=== PATIENT | female | born 1960 | race Caucasian/White ===

== ENCOUNTER 2017-09-24 06:01 | Inpatient (IN) | payer OTHER ==
[~2017-09-24] VITALS: Ht 157.5 cm; Wt 98.6 kg
[~2017-09-24 06:01] MED LIST: ASPIR 8181 MG PO; CLONIDINE HCL0.1 MG PO; CLONIDINE HCL0.2 MG PO; COLACE100 MG PO; D3-50001 TAB PO; GABAPENTIN300 M2 PO; GLUCOVANCE1 TA2 PO; HYDROCHLOROTHIA25 MG PO; LANTUS SOLOS100 U/M1 SQ; LIPITOR40 MG PO; MAPAP500 MG PO; METFORMIN HCL850 MG PO; NAPROXEN EC500 MG PO; NEU100 PO; NEURONTIN100 MG PO; NOR5 PO; TENORMIN25 MG PO; VASOTEC20 MG PO; VITAMIN D35000 IU PO
[2017-09-24 07:01] LABS: BASOPHIL % 0.4 % (0-2); PLATELET COUNT 385 x10^3mcL (130-400); RED CELL DISTRIBUTION WIDTH 13.8 % (11.5-14.5)
[2017-09-24 07:15] LABS: ALBUMIN 3.4 g/dL (3.4-5.0); BILIRUBIN TOTAL 0.4 mg/dL (0.20-1.00); CALCIUM 9.7 mg/dL (8.5-10.1); CARBON DIOXIDE 26.6 mmol/L (21-32); CREATININE SERUM 1.3 mg/dL (0.6-1.0); POTASSIUM SERUM 4.5 mmol/L (3.5-5.1); TOTAL PROTEIN, SERUM 8.2 g/dL (6.4-8.2)
[2017-09-24 08:52] LABS: UA SPECIFIC GRAVITY 1.015 (1.005-1.035); microscopic required? YES; urine erythrocyte TRACE (NEGATIVE)
[2017-09-24 10:39] VITALS: BP 202/87
[2017-09-24 11:36] VITALS: BP 202/87
[2017-09-24 14:33] VITALS: BP 139/74
[2017-09-24 16:57] VITALS: BP 176/79
[2017-09-24 17:47] VITALS: BP 156/74
[2017-09-24 21:40] VITALS: BP 156/51
[2017-09-25] VITALS (7 sets, daily range): BP systolic 125–183; BP diastolic 56–76
[2017-09-25 06:48] LABS: CALCIUM 9.2 mg/dL (8.5-10.1); CARBON DIOXIDE 29.6 mmol/L (21-32); CHLORIDE SERUM 103 mmol/L (98-107); CREATININE SERUM 0.9 mg/dL (0.6-1.0); GFR1 > 60 mL/min; GLUCOSE SERUM 210 mg/dL (74-106); MAGNESIUM 1.6 mg/dL (1.8-2.4); POTASSIUM SERUM 4.3 mmol/L (3.5-5.1); SODIUM SERUM 138 mmol/L (136-145)
[2017-09-25 06:56] LABS: BASOPHIL % 0.6 % (0-2); PLATELET COUNT 348 x10^3mcL (130-400); RED CELL DISTRIBUTION WIDTH 14.1 % (11.5-14.5)
[2017-09-26 05:51] VITALS: BP 158/50
[2017-09-26 06:26] LABS: CALCIUM 9.4 mg/dL (8.5-10.1); CARBON DIOXIDE 30.5 mmol/L (21-32); CREATININE SERUM 1.1 mg/dL (0.6-1.0); MAGNESIUM 1.8 mg/dL (1.8-2.4); POTASSIUM SERUM 4.8 mmol/L (3.5-5.1)
[2017-09-26 06:39] LABS: BASOPHIL % 0.5 % (0-2); PLATELET COUNT 342 x10^3mcL (130-400); RED CELL DISTRIBUTION WIDTH 13.7 % (11.5-14.5)
[2017-09-26 10:36] VITALS: BP 156/49
[2017-09-26 13:51] VITALS: BP 136/53
[2017-09-26] MEDS ORDERED: APR25 PO (18:08)
[2017-09-26 18:09] VITALS: BP 123/78
[2017-09-26] MEDS ORDERED: LOP50 PO (18:09)
[2017-09-26] MEDS ORDERED: NOR5 PO (18:10)
[2017-09-26 18:26] VITALS: BP 123/78
== END 2017-09-26 18:59 | disposition home or self-care (01) | DRG 203 ==
LOC: ED 06:01 → DU 09:10
PROVIDERS: Emergency Medicine; ADMIT Internal Medicine Pulmonary Disease
DX: R07.89 Other chest pain (principal); N17.9 Acute kidney failure, unspecified; E88.81 Metabolic syndrome and other insulin resistance; E11.65 Type 2 diabetes mellitus with hyperglycemia; I16.0 Hypertensive urgency; E66.9 Obesity, unspecified; E78.5 Hyperlipidemia, unspecified; Z79.84 Long term (current) use of oral hypoglycemic drugs; Z86.73 Personal history of transient ischemic attack (TIA), and cerebral infarction without residual deficits; Z90.49 Acquired absence of other specified parts of digestive tract; I10 Essential (primary) hypertension
CPT/HCPCS: 82962; 83880; 87804; A9500; J1815; J2785; J7030; J7050; Q0092

== ENCOUNTER 2017-10-15 13:13 | Emergency (ER) | payer OTHER ==
[~2017-10-15 13:13] MED LIST changes: +APR25 PO; +LOP50 PO
[2017-10-15 14:44] LABS: RED CELL DISTRIBUTION WIDTH 13.5 % (11.5-14.5)
[2017-10-15 14:48] LABS: BASOPHIL % 0 % (0-2); PLATELET COUNT 415 x10^3mcL (130-400)
[2017-10-15 14:49] LABS: CALCIUM 8.9 mg/dL (8.5-10.1); CARBON DIOXIDE 25.1 mmol/L (21-32); CREATININE SERUM 1.2 mg/dL (0.6-1.0); POTASSIUM SERUM 4.8 mmol/L (3.5-5.1)
[2017-10-15 14:54] LABS: ALBUMIN 3.4 g/dL (3.4-5.0); BILIRUBIN TOTAL 0.5 mg/dL (0.20-1.00)
[2017-10-15 16:29] VITALS: BP 137/79
== END 2017-10-15 16:29 | disposition home or self-care (01) ==
LOC: ED 13:13
PROVIDERS: Emergency Medicine
DX: B34.9 Viral infection, unspecified (principal); I10 Essential (primary) hypertension; E78.5 Hyperlipidemia, unspecified; E11.9 Type 2 diabetes mellitus without complications
CPT/HCPCS: 83880; 84439; 87046; 87046-59; J1885; J2765; J7030; Q0092

== ENCOUNTER 2017-10-25 15:49 | Emergency (ER) | payer OTHER ==
[~2017-10-25] VITALS: Ht 157.5 cm; Wt 96.6 kg
[2017-10-25 16:55] VITALS: Ht 157.5 cm; Wt 96.6 kg
[2017-10-25 20:26] LABS: BASOPHIL % 0.4 % (0-2); RED CELL DISTRIBUTION WIDTH 14.3 % (11.5-14.5)
[2017-10-25 20:29] LABS: PLATELET COUNT 408 x10^3mcL (130-400)
[2017-10-25 20:39] LABS: CALCIUM 8.2 mg/dL (8.5-10.1); CARBON DIOXIDE 29.6 mmol/L (21-32); CREATININE SERUM 1.4 mg/dL (0.6-1.0); POTASSIUM SERUM 4.2 mmol/L (3.5-5.1)
[2017-10-25 20:44] LABS: ALBUMIN 2.9 g/dL (3.4-5.0); BILIRUBIN TOTAL 0.2 mg/dL (0.20-1.00); TOTAL PROTEIN, SERUM 7.2 g/dL (6.4-8.2)
[2017-10-25 23:20] VITALS: BP 170/89
== END 2017-10-25 23:31 | disposition home or self-care (01) ==
LOC: ED 15:49
PROVIDERS: Emergency Medicine
DX: J09.X2 Influenza due to identified novel influenza A virus with other respiratory manifestations (principal); I10 Essential (primary) hypertension; E11.9 Type 2 diabetes mellitus without complications; E78.5 Hyperlipidemia, unspecified; E78.00 Pure hypercholesterolemia, unspecified
CPT/HCPCS: 82962; 87804; J1885; J2405; J3490; J7030

== ENCOUNTER 2018-03-27 07:35 | Emergency (ER) | payer OTHER ==
[~2018-03-27] VITALS: Ht 170.2 cm; Wt 90.7 kg
[2018-03-27 07:47] VITALS: Ht 170.2 cm; Wt 90.7 kg
[2018-03-27 13:06] VITALS: BP 167/73
[2018-03-28] MEDS ORDERED: ACT15 PO (12:24)
[2018-03-28] MEDS ORDERED: VIT D2 PO (12:27)
[2018-03-28] MEDS ORDERED: TENORMIN50 MG GT (12:30)
[2018-03-28] MEDS ORDERED: METFORMIN HYD1000 M2 PO (12:30)
[2018-03-28] MEDS ORDERED: GLIPIZIDE10 M2 PO (12:31)
[2018-03-28] MEDS ORDERED: LASIX20 MG PO (12:31)
== END 2018-03-27 13:06 | disposition home or self-care (01) ==
LOC: ED 07:35
DX: N39.0 Urinary tract infection, site not specified (principal); I10 Essential (primary) hypertension; E11.9 Type 2 diabetes mellitus without complications; Z90.49 Acquired absence of other specified parts of digestive tract
CPT/HCPCS: 82962; J1885; J3010; Q0162

== ENCOUNTER 2018-03-28 07:05 | Emergency (ER) | payer OTHER ==
[~2018-03-28] VITALS: Ht 160 cm; Wt 100.4 kg
[2018-03-28 07:26] VITALS: Ht 160 cm; Wt 100.4 kg
[2018-03-28 08:27] LABS: BASOPHIL % 0.2 % (0-2); PLATELET COUNT 304 x10^3mcL (130-400)
[2018-03-28 08:28] LABS: RED CELL DISTRIBUTION WIDTH 15.2 % (11.5-14.5)
[2018-03-28 08:41] LABS: CALCIUM 9.1 mg/dL (8.5-10.1); CARBON DIOXIDE 24.1 mmol/L (21-32); CREATININE SERUM 1.3 mg/dL (0.6-1.0); POTASSIUM SERUM 4.4 mmol/L (3.5-5.1)
[2018-03-28 08:47] LABS: ALBUMIN 3.3 g/dL (3.4-5.0); BILIRUBIN TOTAL 0.51 mg/dL (0.20-1.00); TOTAL PROTEIN, SERUM 8.2 g/dL (6.4-8.2)
[2018-03-28 09:27] LABS: microscopic required? YES; urine erythrocyte TRACE (NEGATIVE)
[2018-03-28] MEDS ORDERED: ACT15 PO (12:24)
[2018-03-28] MEDS ORDERED: VIT D2 PO (12:27)
[2018-03-28] MEDS ORDERED: TENORMIN50 MG GT (12:30)
[2018-03-28] MEDS ORDERED: METFORMIN HYD1000 M2 PO (12:30)
[2018-03-28] MEDS ORDERED: GLIPIZIDE10 M2 PO (12:31)
[2018-03-28] MEDS ORDERED: LASIX20 MG PO (12:31)
[2018-03-28 16:43] VITALS: BP 150/70
== END 2018-03-28 16:43 | disposition short-term general hospital (02) ==
LOC: ED 07:05
PROVIDERS: Emergency Medicine
DX: A41.89 Other specified sepsis (principal); I10 Essential (primary) hypertension; E11.9 Type 2 diabetes mellitus without complications; E78.00 Pure hypercholesterolemia, unspecified; E78.5 Hyperlipidemia, unspecified; Z90.49 Acquired absence of other specified parts of digestive tract; Z86.73 Personal history of transient ischemic attack (TIA), and cerebral infarction without residual deficits
CPT/HCPCS: 62272; 83880; 86788; 86789; J0696; J2001; J2405; J3370; J3490; J7030

== ENCOUNTER 2018-04-03 17:58 | Inpatient (IN) | payer OTHER ==
[~2018-04-03] VITALS: Ht 157.5 cm; Wt 79.4 kg
[~2018-04-03 17:58] MED LIST changes: +ACT15 PO; +LASIX20 MG PO; +METFORMIN HYD1000 M2 PO; +TENORMIN50 MG GT; +VIT D2 PO
[2018-04-03 18:05] VITALS: Ht 157.5 cm; Wt 79.4 kg
[2018-04-03 18:35] LABS: BASOPHIL % 0.9 % (0-2)
[2018-04-03 18:36] LABS: RED CELL DISTRIBUTION WIDTH 15.9 % (11.5-14.5)
[2018-04-03 18:38] LABS: PLATELET COUNT 600 x10^3mcL (130-400)
[2018-04-03 18:45] LABS: CREATININE SERUM 1.2 mg/dL (0.6-1.0); POTASSIUM SERUM 4.4 mmol/L (3.5-5.1)
[2018-04-03] MEDS ORDERED: ATENOLOL50 MG PO (19:27)
[2018-04-03 20:26] VITALS: BP 186/81
[2018-04-03 20:57] VITALS: BP 186/81
[2018-04-03 23:51] VITALS: BP 176/64
[2018-04-04] VITALS (7 sets, daily range): BP systolic 150–180; BP diastolic 50–69
[2018-04-04 06:47] LABS: BASOPHIL % 0.5 % (0-2)
[2018-04-04 06:49] LABS: PLATELET COUNT 603 x10^3mcL (130-400); RED CELL DISTRIBUTION WIDTH 15.9 % (11.5-14.5)
[2018-04-04 07:37] LABS: CALCIUM 8.8 mg/dL (8.5-10.1); CARBON DIOXIDE 24.1 mmol/L (21-32); CREATININE SERUM 1.1 mg/dL (0.6-1.0); MAGNESIUM 1.5 mg/dL (1.8-2.4); POTASSIUM SERUM 4.3 mmol/L (3.5-5.1)
[2018-04-05 05:17] VITALS: BP 171/57
[2018-04-05 06:38] LABS: CALCIUM 8.9 mg/dL (8.5-10.1); CARBON DIOXIDE 30.2 mmol/L (21-32); CREATININE SERUM 1.2 mg/dL (0.6-1.0); MAGNESIUM 2.1 mg/dL (1.8-2.4); POTASSIUM SERUM 4.4 mmol/L (3.5-5.1)
[2018-04-05 10:00] VITALS: BP 177/71
[2018-04-05 16:47] VITALS: BP 173/68
[2018-04-05 21:26] VITALS: BP 141/56
[2018-04-06 05:31] VITALS: BP 121/46
[2018-04-06] MEDS ORDERED: APR25 PO (08:41)
[2018-04-06 10:02] VITALS: BP 149/53
[2018-04-06 10:47] VITALS: BP 149/53
[2018-04-06] MEDS ORDERED: GLIPIZIDE10 M2 PO (10:47)
== END 2018-04-06 11:48 | disposition home or self-care (01) | DRG 194 ==
LOC: ED 17:58 → DU 19:05
PROVIDERS: Emergency Medicine; Internal Medicine Pulmonary Disease
DX: I11.0 Hypertensive heart disease with heart failure (principal); J18.9 Pneumonia, unspecified organism; E11.40 Type 2 diabetes mellitus with diabetic neuropathy, unspecified; E66.01 Morbid (severe) obesity due to excess calories; I50.33 Acute on chronic diastolic (congestive) heart failure; E78.00 Pure hypercholesterolemia, unspecified; E78.5 Hyperlipidemia, unspecified; Z90.49 Acquired absence of other specified parts of digestive tract; Z86.73 Personal history of transient ischemic attack (TIA), and cerebral infarction without residual deficits; Z68.30 Body mass index [BMI] 30.0-30.9, adult
CPT/HCPCS: 82962; 83880; J0360; J1650; J1815; J1940; J1956; J2405; J3010; J3475; J7030

== ENCOUNTER 2018-04-14 18:03 | Emergency (ER) | payer OTHER ==
[~2018-04-14] VITALS: Ht 152.4 cm; Wt 99.8 kg
[~2018-04-14 18:03] MED LIST changes: +ATENOLOL50 MG PO; +GLIPIZIDE10 M2 PO
[2018-04-14 18:31] VITALS: Ht 152.4 cm; Wt 99.8 kg
[2018-04-14 19:45] VITALS: BP 164/79
== END 2018-04-14 20:06 | disposition home or self-care (01) ==
LOC: ED 18:03
DX: N39.0 Urinary tract infection, site not specified (principal); I10 Essential (primary) hypertension; E11.9 Type 2 diabetes mellitus without complications; Z86.73 Personal history of transient ischemic attack (TIA), and cerebral infarction without residual deficits; E78.00 Pure hypercholesterolemia, unspecified; Z90.49 Acquired absence of other specified parts of digestive tract
CPT/HCPCS: J1885

== ENCOUNTER 2018-06-23 14:13 | Inpatient (IN) | payer OTHER ==
[~2018-06-23] VITALS: Ht 165.1 cm; Wt 102.1 kg
[2018-06-23 14:26] VITALS: Ht 165.1 cm; Wt 102.1 kg
[2018-06-23 15:07] LABS: BASOPHIL % 0.3 % (0-2)
[2018-06-23 15:08] LABS: PLATELET COUNT 412 x10^3mcL (130-400); RED CELL DISTRIBUTION WIDTH 15.7 % (11.5-14.5)
[2018-06-23 15:12] LABS: CALCIUM 9.2 mg/dL (8.5-10.1); CARBON DIOXIDE 28.8 mmol/L (21-32); CREATININE SERUM 1.5 mg/dL (0.6-1.0); POTASSIUM SERUM 5.4 mmol/L (3.5-5.1)
[2018-06-23 15:17] LABS: ALBUMIN 3.4 g/dL (3.4-5.0); BILIRUBIN TOTAL 0.3 mg/dL (0.20-1.00)
[2018-06-23] MEDS ORDERED: ENALAPRIL MALEA20 MG PO (16:24)
[2018-06-23] MEDS ORDERED: NEU300 PO (16:25)
[2018-06-23] MEDS ORDERED: METFORMIN HCL1000 MG PO (16:25)
[2018-06-23] MEDS ORDERED: NOVOLIN N100 U/ML SQ (16:30)
[2018-06-23 17:21] VITALS: BP 158/64
[2018-06-23 17:59] VITALS: BP 158/64
[2018-06-23 20:06] VITALS: BP 148/58
[2018-06-23 23:12] VITALS: BP 138/51
[2018-06-24 05:25] VITALS: BP 138/53
[2018-06-24 06:38] LABS: CARBON DIOXIDE 26.6 mmol/L (21-32); CREATININE SERUM 1.3 mg/dL (0.6-1.0); POTASSIUM SERUM 4.8 mmol/L (3.5-5.1)
[2018-06-24 06:50] LABS: BASOPHIL % 0.3 % (0-2); PLATELET COUNT 369 x10^3mcL (130-400)
[2018-06-24 06:51] LABS: RED CELL DISTRIBUTION WIDTH 15.9 % (11.5-14.5)
[2018-06-24 08:59] VITALS: BP 148/53
[2018-06-24 12:43] VITALS: BP 140/59
[2018-06-24 17:05] VITALS: BP 140/59
[2018-06-24 17:15] VITALS: BP 157/59
== END 2018-06-24 17:59 | disposition home or self-care (01) | DRG 203 ==
LOC: ED 14:13 → DU 16:07
PROVIDERS: Emergency Medicine; Internal Medicine Pulmonary Disease
DX: R07.89 Other chest pain (principal); E11.40 Type 2 diabetes mellitus with diabetic neuropathy, unspecified; I50.30 Unspecified diastolic (congestive) heart failure; I11.0 Hypertensive heart disease with heart failure; E66.01 Morbid (severe) obesity due to excess calories; E78.5 Hyperlipidemia, unspecified; G47.33 Obstructive sleep apnea (adult) (pediatric); Z90.49 Acquired absence of other specified parts of digestive tract; Z68.36 Body mass index [BMI] 36.0-36.9, adult; Z86.73 Personal history of transient ischemic attack (TIA), and cerebral infarction without residual deficits; Z79.82 Long term (current) use of aspirin; Z79.84 Long term (current) use of oral hypoglycemic drugs; Z79.899 Other long term (current) drug therapy
CPT/HCPCS: 82962; 83880; J1885; Q0092

== ENCOUNTER 2018-09-15 11:25 | Emergency (ER) | payer OTHER ==
[~2018-09-15] VITALS: Ht 152.4 cm; Wt 108.9 kg
[~2018-09-15 11:25] MED LIST changes: +ENALAPRIL MALEA20 MG PO; +METFORMIN HCL1000 MG PO; +NEU300 PO; +NOVOLIN N100 U/ML SQ
[2018-09-15 12:10] VITALS: Ht 152.4 cm; Wt 108.9 kg
[2018-09-15 15:51] LABS: PLATELET COUNT 365 x10^3mcL (130-400)
[2018-09-15 15:52] LABS: RED CELL DISTRIBUTION WIDTH 16.2 % (11.5-14.5)
[2018-09-15 16:02] LABS: ALBUMIN 3.8 g/dL (3.4-5.0); BILIRUBIN TOTAL 0.33 mg/dL (0.20-1.00); CALCIUM 9.2 mg/dL (8.5-10.1); CARBON DIOXIDE 25.7 mmol/L (21-32); CREATININE SERUM 1.3 mg/dL (0.6-1.0); POTASSIUM SERUM 4.9 mmol/L (3.5-5.1)
[2018-09-15 16:04] LABS: TOTAL PROTEIN, SERUM 8.6 g/dL (6.4-8.2)
[2018-09-15 16:13] LABS: BAND NEUTROPHIL 2 % (0-10); BASOPHIL 0 % (0-2); MONOCYTE 4 % (0-7); SEGMENTED NEUTROPHILS 69 % (37-75); rbc morphology (normal/abnorm) ABNORMAL (NORMAL)
[2018-09-15 16:14] LABS: PLATELET MORPHOLOGY PLATELETS NORMAL; ovalocyte/elliptocyte 1+
[2018-09-15 16:24] LABS: FREE T4 1.31 ng/dL (0.76-1.46); T4(THYROXINE) 10.7 ug/dL (4.7-13.3)
[2018-09-15 16:41] LABS: T3 TOTAL 1.1 ng/mL
[2018-09-15 18:32] VITALS: BP 177/93
== END 2018-09-15 18:32 | disposition home or self-care (01) ==
LOC: ED 11:25
PROVIDERS: Emergency Medicine
DX: R60.0 Localized edema (principal); I82.512 Chronic embolism and thrombosis of left femoral vein; E66.01 Morbid (severe) obesity due to excess calories; I10 Essential (primary) hypertension; E78.00 Pure hypercholesterolemia, unspecified; E11.40 Type 2 diabetes mellitus with diabetic neuropathy, unspecified; E78.5 Hyperlipidemia, unspecified; Z86.73 Personal history of transient ischemic attack (TIA), and cerebral infarction without residual deficits; Z68.42 Body mass index [BMI] 45.0-49.9, adult; Z90.49 Acquired absence of other specified parts of digestive tract; Z98.890 Other specified postprocedural states
CPT/HCPCS: 83880; 84439; J1940; J2270; J2405; Q0092

== ENCOUNTER 2019-01-18 15:37 | Emergency (ER) | payer OTHER ==
[~2019-01-18] VITALS: Ht 167.6 cm; Wt 109.8 kg
[2019-01-18 15:43] VITALS: Ht 167.6 cm; Wt 109.8 kg
[2019-01-18 16:39] LABS: BASOPHIL % 0.6 % (0-2)
[2019-01-18 16:40] LABS: PLATELET COUNT 404 x10^3mcL (130-400); RED CELL DISTRIBUTION WIDTH 16.8 % (11.5-14.5)
[2019-01-18 16:53] LABS: CALCIUM 8.9 mg/dL (8.5-10.1); CARBON DIOXIDE 29.2 mmol/L (21-32); CREATININE SERUM 1.5 mg/dL (0.6-1.0); POTASSIUM SERUM 4.3 mmol/L (3.5-5.1)
[2019-01-18 16:57] LABS: BILIRUBIN TOTAL 0.17 mg/dL (0.20-1.00); TOTAL PROTEIN, SERUM 6.9 g/dL (6.4-8.2)
[2019-01-18 16:59] LABS: ALBUMIN 2.7 g/dL (3.4-5.0)
[2019-01-18 17:43] VITALS: BP 171/87
[2019-01-18 18:13] LABS: UA SPECIFIC GRAVITY 1.015 (1.005-1.035); microscopic required? YES; urine erythrocyte TRACE (NEGATIVE)
== END 2019-01-18 17:44 | disposition home or self-care (01) ==
LOC: ED 15:37
PROVIDERS: Emergency Medicine
DX: R42 Dizziness and giddiness (principal); I10 Essential (primary) hypertension; R11.2 Nausea with vomiting, unspecified; R51 Headache; R53.83 Other fatigue; E11.9 Type 2 diabetes mellitus without complications; E78.00 Pure hypercholesterolemia, unspecified; E78.5 Hyperlipidemia, unspecified; Z90.49 Acquired absence of other specified parts of digestive tract; Z86.73 Personal history of transient ischemic attack (TIA), and cerebral infarction without residual deficits
CPT/HCPCS: J2765; J7030; J8597

== ENCOUNTER 2019-02-28 09:47 | Emergency (ER) | payer OTHER ==
[~2019-02-28] VITALS: Ht 165.1 cm; Wt 109.3 kg
[2019-02-28 10:15] VITALS: BP 148/91; Ht 165.1 cm; Wt 109.3 kg
== END 2019-02-28 11:51 | disposition left against medical advice (07) ==
LOC: ED 09:47
DX: Z53.21 Procedure and treatment not carried out due to patient leaving prior to being seen by health care provider (principal)

== ENCOUNTER 2019-06-14 12:50 | Emergency (ER) | payer OTHER ==
[~2019-06-14] VITALS: Ht 165.1 cm; Wt 106.1 kg
[2019-06-14 13:15] VITALS: Ht 165.1 cm; Wt 106.1 kg
[2019-06-14 17:34] VITALS: BP 145/72
== END 2019-06-14 17:34 | disposition home or self-care (01) ==
LOC: ED 12:50
DX: M75.31 Calcific tendinitis of right shoulder (principal); I10 Essential (primary) hypertension; E78.00 Pure hypercholesterolemia, unspecified; E11.40 Type 2 diabetes mellitus with diabetic neuropathy, unspecified; E78.5 Hyperlipidemia, unspecified; Z98.890 Other specified postprocedural states; Z86.73 Personal history of transient ischemic attack (TIA), and cerebral infarction without residual deficits
CPT/HCPCS: J3010